=== PATIENT | female | born 1950 | race Two or more races ===

== ENCOUNTER 2023-06-25 17:15 | Emergency (ER) | payer BC, OTHER ==
[~2023-06-25] VITALS: Ht 154.9 cm; Wt 64.0 kg
[2023-06-25 19:22] LABS: Basophils # (auto) 0.1 10 ^3/uL (0-0.2); Basophils % (auto) 0.7 % (0.0-2.0); Eosinophils # (auto) 0.3 10 ^3/uL (0-0.8); Hemoglobin 12.7 g/dL (12.2-16.2); Monocytes # (auto) 0.5 10 ^3/uL (0-1.3)
[2023-06-25 19:23] LABS: Eosinophils % (auto) 3.2 % (0.0-7.0); Hematocrit 37.9 % (36.0-46.0); Lymphocytes # (auto) 1.9 10 ^3/uL (0.4-5.4); Lymphocytes % (auto) 21.1 % (10.0-50.0); Mean Corpuscular Hemoglobin 32.2 pg (28.0-32.0); Mean Corpuscular Hgb Conc. 33.7 g/dL (32.0-36.0); Mean Corpuscular Volume 95.7 fL (80.0-100.0); Monocytes % (auto) 5.9 % (0.0-12.0); Neutrophils # (auto) 6.1 10 ^3/uL (1.6-8.6); Neutrophils % (auto) 69.1 % (37.0-80.0); Nucleated Red Blood Cells % 0.1 %; Red Blood Cells 3.96 10^6/uL (4.0-5.20); Red Cell Distribution Width 14.2 % (11.8-14.3); White Blood Cell 8.8 10^3/uL (4.4-10.8)
[2023-06-25 19:34] LABS: Albumin 4.2 g/dL (3.2-4.8); Alkaline Phosphatase 98 U/L (46-116); Anion Gap 6 (5-15); Aspartate Aminotransferase 16 U/L (13-40); Bilirubin, Total 0.4 mg/dL (0.2-1.0); Blood Urea Nitrogen 16 mg/dL (9-23); Calcium 8.8 mg/dL (8.7-10.4); Carbon Dioxide 21 mmol/L (20-30); Chloride 106 mmol/L (98-107); Glucose 108 mg/dL (74-106); Potassium 4.2 mmol/L (3.5-5.1); Sodium 133 mmol/L (136-145); Total Protein 7.8 g/dL (5.7-8.2)
[2023-06-25 19:37] LABS: Alanine Aminotransferase < 9 U/L (7-40)
[2023-06-25 19:58] VITALS: BP 120/53; PULSE 100; RESP 19; TEMP 97.9; O2SAT 99
== END 2023-06-25 20:03 | disposition home or self-care (01) ==
LOC: EDBD 17:15 → ER 17:15
DX: M79.642 Pain in left hand (principal); M79.641 Pain in right hand; M79.662 Pain in left lower leg; M79.661 Pain in right lower leg; M79.89 Other specified soft tissue disorders; M19.90 Unspecified osteoarthritis, unspecified site
CPT/HCPCS: 36415; 80053; 85025